=== PATIENT | female | born 1995 | race Caucasian/White ===

== ENCOUNTER 2023-08-31 10:20 | Emergency (ER) | payer OTHER ==
[~2023-08-31] VITALS: Ht 162.6 cm; Wt 95.3 kg
[2023-08-31] MEDS: IV NORMAL SALINE 1000 ML BAG IV ONE (11:26)
[2023-08-31 11:40] LABS: BASOPHILS % (AUTO) 0.2 % (0.0-2.0); EOSINOPHILS # (AUTO) 0.1 K/uL (0.0-0.7); EOSINOPHILS % (AUTO) 0.9 % (0.0-7.0); HEMATOCRIT 39.4 % (31.2-41.9); HEMOGLOBIN 13.3 g/dL (10.9-14.3); LYMPHOCYTES # (AUTO) 1.7 K/uL (0.8-4.8); LYMPHOCYTES % (AUTO) 27.3 % (20.5-51.5); MEAN CORPUSCULAR HEMOGLOBIN 27.6 uug (24.7-32.8); MEAN CORPUSCULAR HGB CONC 34 g/dL (32.3-35.6); MEAN CORPUSCULAR VOLUME 81.9 fL (75.5-95.3); MONOCYTES # (AUTO) 0.4 K/uL (0.1-1.30); MONOCYTES % (AUTO) 6.3 % (0.0-11.0); NEUTROPHILS % (AUTO) 65.3 % (38.5-71.5); PLATELET COUNT (AUTO) 406 K/uL (179-408); RED BLOOD CELL COUNT(AUTO) 4.81 MIL/uL (3.63-4.92); WHITE BLOOD COUNT (AUTO) 6.2 K/uL (3.8-11.8)
[2023-08-31 11:46] LABS: ALBUMIN 3.7 g/dL (3.4-5.0); BILIRUBIN,DIRECT 0.1 mg/dL (0.0-0.2); BILIRUBIN,TOTAL 0.3 mg/dL (0.2-1.0); CREATININE 0.7 mg/dL (0.6-1.3); POTASSIUM 3.9 mmol/L (3.5-5.1)
[2023-08-31 11:52] LABS: LACTIC ACID 2.1 mmol/L (0.4-2.0)
[2023-08-31] MEDS ORDERED: ONDANSETRON 4 MG/2 ML VIAL ONE (13:53)
[2023-08-31] MEDS: ONDANSETRON 4 MG/2 ML VIAL IV ONE (14:05)
[2023-08-31 14:09] VITALS: BP 125/84; O2SAT 100
== END 2023-08-31 14:10 | disposition home or self-care (01) ==
LOC: ER 10:20
DX: R55 Syncope and collapse (principal); R10.2 Pelvic and perineal pain; Z88.1 Allergy status to other antibiotic agents
CPT/HCPCS: 99284; 96360; 80076; 80048; 83690; 84443; 85025; 84702; 36415; 93005; 83605 ×2; J7040; A4606; A4663; J2405